=== PATIENT | male | born 1990 | race African-American/Black ===

== ENCOUNTER 2019-11-30 16:40 | Emergency (ER) | payer OTHER ==
[~2019-11-30] VITALS: Ht 165.1 cm; Wt 50.6 kg
[2019-11-30 16:59] VITALS: BP 156/94
[2019-11-30] MEDS ORDERED: BIKT1TAB PO (17:01)
[2019-11-30] MEDS ORDERED: BACT800T5 PO (17:34)
[2019-11-30] MEDS ORDERED: IBUP80TA PO (17:34)
== END 2019-11-30 17:39 | disposition home or self-care (01) ==
LOC: M ED 16:40
DX: L02.01 Cutaneous abscess of face (principal); S00.86XA Insect bite (nonvenomous) of other part of head, initial encounter; W57.XXXA Bitten or stung by nonvenomous insect and other nonvenomous arthropods, initial encounter; Y92.89 Other specified places as the place of occurrence of the external cause; Y93.9 Activity, unspecified; Y99.9 Unspecified external cause status; B20 Human immunodeficiency virus [HIV] disease